=== PATIENT | male | born 1970 | race Caucasian/White ===

== ENCOUNTER 2016-07-29 23:36 | Emergency (ER) | payer BC ==
[2016-07-30] MEDS ORDERED: Aspirin Low Dose CHEW TAB* 81 MG PO ONE (01:30)
[2016-07-30 02:09] LABS: Hematocrit 45 % (42-52); Hemoglobin 15.3 g/dl (14.0-18.0); Mean Corpuscular HGB Conc 34 g/dl (31-36); Mean Corpuscular Hemoglobin 31 pg (27-31); Mean Corpuscular Volume 92 fL (80-94); Mean Platelet Volume 9 um3 (7.4-10.4); Red Blood Count 4.91 10^6/ul (4.0-5.4); Red Cell Distribution Width 13 % (10.5-15); White Blood Count 7.3 10^3/ul (3.5-10.8)
[2016-07-30 02:22] LABS: Albumin 4.2 g/dL (3.2-5.2); BUN/Creatinine Ratio 22.1 (8-20); Calcium 9.4 mg/dL (8.6-10.3); EGFR African American 161.5 (>60); EGFR Non-African American 125.5 (>60); Globulin 3.2 g/dL (2-4); Potassium 3.7 mmol/L (3.5-5.0); Total Bilirubin 0.6 mg/dL (0.2-1.0); Total Protein 7.4 g/dL (6.4-8.9)
--- NOTE | 2016-07-30 03:21 | ED ---
robert Iqbal Timothy, scribed for Patrick Nuno on 07/30/16 at 0132 . HPI Chest Pain - HPI Summary HPI Summary: Troy Mendoza is a 45 yo male presenting to [facility] with left upper CP with SOB and nausea since 2315 07/29/16, for about 20 minutes. Pt denies diaphoresis and pain at this time. His MHx includes SVT with ablation 2014, and DM Dx 2 days MORTAR MIXER , HTN, anxiety, and depression. - History of Current Complaint Chief Complaint: EDChestPainROMI Time Seen by Provider: 07/30/16 01:23 Hx Obtained From: Patient Onset/Duration: Started Hours Ago, Resolved Time of Onset: 23:45 Timing: Intermittent - 15 minutes Initial Severity: Moderate Current Severity: None Pain Intensity: 0 Pain Scale Used: 0-10 Numeric Chest Pain Location: Diffuse Alleviating Factor(s): Spontaneous Resolution Associated Signs and Symptoms: Positive: Shortness of Breath, Nausea - Allergy/Home Medications Allergies/Adverse Reactions: Allergies Allergy/AdvReac Type Severity Reaction Status Date / Time No Known Allergies Allergy Verified 04/15/12 15:49 PMH/Surg Hx/FS Hx/Imm Hx Endocrine/Hematology History: Denies: Hx Diabetes Cardiovascular History: Reports: Hx Angina, Hx Hypertension - medicated, Other Cardiovascular Problems/Disorders - Taccycardia episode 2008, ED visit, medicated to reduce Denies: Hx Coronary Artery Disease, Hx Hypercholesterolemia, Hx Myocardial Infarction, Hx Valvular Heart Disease Respiratory History: Reports: Hx Sleep Apnea - C PAP Denies: Hx Asthma, Hx Chronic Obstructive Pulmonary Disease (COPD) Sensory History: Denies: Hx Contacts or Glasses, Hx Hearing Aid Opthamlomology History: Denies: Hx Contacts or Glasses Neurological History: Reports: Hx Headaches - PAST Psychiatric History: Reports: Hx Anxiety - OK WITH DAILY MED - Surgical History Surgery Procedure, Year, and Place: 1970 R [facility]RING [place]. 1991 SEPTOPLASTY [facility]. 2011 DENTAL OFC I AND D INFECTED ROOT CANAL. 2008 VASECTOMY OFC Hx Anesthesia Reactions: No Infectious Disease History: Yes Infectious Disease History: Reports: Hx of Known/Suspected MRSA, Traveled Outside the [place] in Last 30 Days - [facility] - Social History Alcohol Use: Occasionally Substance Use Type: Reports: None Hx Tobacco Use: Yes - 5 years of use Smoking Status (MU): Former Smoker Type: Cigarettes Have You Smoked in the Last Year: No Review of Systems Constitutional: Negative Eyes: Negative ENT: Negative Positive: Chest Pain Positive: Shortness Of Breath Positive: Nausea Genitourinary: Negative Musculoskeletal: Negative Skin: Negative Neurological: Negative Psychological: Normal All Other Systems Reviewed And Are Negative: Yes Physical Exam Triage Information Reviewed: Yes Vital Signs On Initial Exam: Initial Vitals Temp Pulse Resp BP Pulse Ox 96.8 F 78 16 163/96 99 07/29/16 23:36 07/29/16 23:36 07/29/16 23:36 07/29/16 23:36 07/29/16 23:36 Vital Signs Reviewed: Yes Appearance: Positive: Well-Appearing, No Pain Distress Skin: Positive: Warm, Skin Color Reflects Adequate Perfusion, Dry Head/Face: Positive: Normal Head/Face Inspection Eyes: Positive: EOMI, MEGAN ENT: Positive: Normal ENT inspection, Hearing grossly normal. Negative: Muffled /hoarse voice Neck: Positive: Supple, Nontender Respiratory/Lung Sounds: Positive: Clear to Auscultation, Breath Sounds Present Cardiovascular: Positive: RRR, Pulses are Symmetrical in both Upper and Lower Extremities Abdomen Description: Positive: Nontender, Soft Bowel Sounds: Positive: Present Musculoskeletal: Positive: Normal, Strength/ROM Intact Neurological: Positive: Normal, Sensory/Motor Intact, Alert, Oriented to Person Place, Time Psychiatric: Positive: Normal Diagnostics - Vital Signs Vital Signs Temp Pulse Resp BP Pulse Ox 07/29/16 23:36 96.8 F 78 16 163/96 99 - Laboratory Result Diagrams: 07/30/16 02:00 07/30/16 02:00 Lab Statement: Any lab studies that have been ordered have been reviewed, and results considered in the medical decision making process. - Radiology CXR Xray Interpretation: No Acute Changes - no acute disease Radiology Interpretation Completed By: ED Physician - EKG 2337 Cardiac Rate: NL EKG Rhythm: Sinus Rhythm EKG Interpretation: NSR @ 77 BPM, no acute changes compared 09/21/14 EKG Comparison: No Significant Change - from 09/21/14 Re-Evaluation - Re-Evaluation First Eval Re-Evaluation Time: 02:54 Change: Unchanged Comment: Pt is requesting to leave AMA Chest Pain Course/Dx - Course Assessment/Plan: Troy Mendoza is a 45 yo male presenting to [facility] with CP, SOB, and nausea. He states his Sx have mostly resolved at this point. After recpommendation for admission for a stress test, Pt will leave AMA. - Diagnoses Provider Diagnoses: Chest pain Discharge - Discharge Plan Condition: Stable Disposition: AGAINST MEDICAL ADVICE Discharge Disposition Comment: Pt will seek a stress test at a later time Patient Education Materials: Chest Pain (ED) Referrals: Steve Ding MD [Primary Care Provider] - As Soon As Possible Additional Instructions: Please follow up with your primary care physician for a stress tests as soon as possible. Return to the emergency department with any new or recurring symptoms. The documentation as recorded by the robert yañez Timothy accurately reflects the service I personally performed and the decisions made by , Patrick Nuno.
[2016-07-30 03:29] VITALS: BP 119/95
--- NOTE | 2016-07-30 07:52 | RAD ---
INDICATION: Chest pain COMPARISON: Most recent comparison chest x-rays dated September 21, 2014 TECHNIQUE: Single AP portable view of the chest was obtained. FINDINGS: Image quality is compromised due to the relative inferiority of a portable chest x-ray. The heart and mediastinum exhibit normal size and contour. The lungs are grossly clear. There is no evidence of a large pleural effusion. Visualized bones are normal for the patient's age. IMPRESSION: No radiographic evidence for acute cardiopulmonary abnormality on this portable chest x-ray.
== END 2016-07-30 03:28 | disposition left against medical advice (07) ==
LOC: ED 23:36
DX: R07.9 Chest pain, unspecified (principal); R06.02 Shortness of breath; R11.0 Nausea
CPT/HCPCS: 36415; 71010; 80053; 83880; 84484; 85025; 86703; 93005; 99282; A9270-GY

== ENCOUNTER 2017-11-04 05:50 | Day surgery (SDC) | payer BC ==
--- NOTE | 2017-10-29 23:17 | HP ---
PREOPERATIVE HISTORY AND PHYSICAL: DATE OF SURGERY: 11/04/17 DATE OF OFFICE VISIT: 10/27/17 ATTENDING SURGEON: Dr. Kobi Stanley.* (DICTAED BY DIXON RECINOS0 PROCEDURE: Left knee arthroscopy, partial meniscectomy. CHIEF COMPLAINT: Left knee pain. HISTORY OF PRESENT ILLNESS: Troy is a 46-year-old male who presents to the clinic for left knee pain due to a medial meniscal tear. He failed conservative measures and therefore agreed to undergo a left knee arthroscopy, partial meniscectomy with Dr. Stanley on 11/04/17. PAST MEDICAL HISTORY: History of hypertension, history of atrial fibrillation, type 2 diabetes most recent A1c was 6.1, anxiety, alcohol abuse, recent diagnosis of Lyme, he just finished his treatment 1 week ago. PAST SURGICAL HISTORY: Heart ablation, hernia surgery. The patient denies prior complications of anesthesia. MEDICATIONS: 1. Amlodipine 10 mg 1 by mouth daily. 2. Metformin 500 mg 1 by mouth daily. 3. Vitamin D 1000 units 1 by mouth daily. 4. 5 mg 1 by mouth daily. 5. Doxycycline 100 mg twice a day. 6. Vitamin B12 one by mouth daily. ALLERGIES: No known drug allergies. FAMILY HISTORY: Positive for heart disease. SOCIAL HISTORY: He lives alone. He is a systems software specialist. He denies tobacco or alcohol use. He is right-hand dominant. REVIEW OF SYSTEMS: A 14-point review of systems was reviewed with the patient. Positive for current complaint, otherwise negative. Denies fever, chills, chest pain, shortness of breath, history of DVT or PE, history of bleeding disorder, history of MRSA. PHYSICAL EXAMINATION GENERAL: A 46-year-old well-developed, well-nourished male, in no acute distress. Alert and oriented x3. Appropriate mood and affect. Appropriate balance and coordination of the lower extremities. VITAL SIGNS: Height 72, weight 255, blood pressure 148/98, respiratory rate 18 , temperature 98.4, BMI 34.6. HEENT: Normocephalic, atraumatic. PERRLA. Throat clear. NECK: Supple. PULMONARY: Lungs clear to auscultation bilaterally. No wheezing, rhonchi or rales. CARDIO: Regular rate and rhythm. S1, S2. No murmurs, gallops or rubs. No edema. ABDOMEN: Positive bowel sounds, soft, nontender. NEURO: Alert and oriented x3. Cranial nerves grossly intact. Sensation is intact to light touch. MUSCULOSKELETAL: Left lower extremity skin is intact. No warmth or erythema. No effusion. Tenderness over the medial joint line. Range of motion 0 to 125. Stable to varus and valgus stress. 1A Shilo. Calf soft, nontender. +5/5 strength dorsiflexion and plantar flexion. Positive Pascual. +2 PT pulses. Sensation intact to light touch distally. STUDIES: MRI of the left knee revealed partial tear of the ACL with a medial meniscus tear. No evidence of fracture or dislocation. IMPRESSION: Left knee meniscus tear. PLAN: The patient is scheduled to undergo a left knee arthroscopy, partial meniscectomy with Dr. Stanley on 11/04/17. He will follow up in 10 to 14 days postop for followup and suture removal. Percocet will be used for postop pain management. DIXON RECINOS [id number]/[facility] #: [id number] MTDRonald
[~2017-11-04 05:50] MED LIST: Buffered Lidocaine 0.9% SYRIN* 5 ML/SYR SYRINGE INTRADERM ONE
[2017-11-04] MEDS ORDERED: Dexamethasone IV* 4 MG/ML 1 ML (4 MG) ONE (05:59)
[2017-11-04] MEDS ORDERED: ceFAZolin 2 GM PREMIX (*) 2 GM/50 ML BAG IVPB ONE (05:59)
[2017-11-04] MEDS ORDERED: Famotidine IV* 10 MG/ML 2 ML (20 mg) ONE (05:59)
[2017-11-04] MEDS ORDERED: Dexamethasone IV* 4 MG/ML 1 ML (4 MG) IV SLOW PU ONE (06:00)
[2017-11-04] MEDS ORDERED: Famotidine IV* 10 MG/ML 2 ML (20 mg) IV ONE (06:00)
[2017-11-04] MEDS ORDERED: Bupivacaine 0.5% SDV PF* 30ML VIAL ONE (07:06)
[2017-11-04] MEDS ORDERED: Lidocaine 1% MPF wEPI 200,000* 30 ML SDV ONE (07:06)
[2017-11-04] MEDS ORDERED: fentaNYL* 50 MCG/ML 2 ML VIAL (100 MCG VIAL) ONE ×2 (07:18→08:05)
[2017-11-04] MEDS ORDERED: Midazolam* 1 MG/ML 5 ML VIAL (5 MG) ONE (07:18)
[2017-11-04] MEDS ORDERED: Propofol* 10 MG/ML 20 ML BTL IV PUSH ONE (07:41)
[2017-11-04] MEDS ORDERED: Lidocaine 2% PF * 5 ML VIAL ONE (07:41)
[2017-11-04] MEDS ORDERED: Ketorolac INJ* 30 MG/ML 1 ML VIAL ONE (07:50)
[2017-11-04] MEDS ORDERED: DiMENhydriNATE IV* 50 MG/ML VIAL ONE (08:10)
[2017-11-04] MEDS ORDERED: PROCHLORPERAZINE INJ 5 MG/ML 2 ML VIAL IV PRN (08:16)
[2017-11-04] MEDS ORDERED: fentaNYL* 50 MCG/ML 2 ML VIAL (100 MCG VIAL) IV PRN (08:16)
[2017-11-04] MEDS ORDERED: HYDROcodone/ACETAMIN 5-325 MG* 1 TAB PO PRN (08:16)
[2017-11-04] MEDS ORDERED: Naloxone* 0.4 MG/ML 1 ML VIAL IV PRN (08:16)
[2017-11-04] MEDS ORDERED: oxyCODONE/Acetamin 5/325 MG* TAB PO PRN (08:16)
[2017-11-04] MEDS ORDERED: oxyCODONE/Acetamin 5/325 MG* TAB ONE (08:58)
[2017-11-04 09:26] VITALS: BP 133/75
--- NOTE | 2017-11-05 06:05 | OP ---
CC: PCP, Peter Castillo MD * DATE OF OPERATION: 11/04/17 - [facility] DATE OF : 68 SURGEON: Kobi Stanley MD ANESTHESIOLOGIST: Atif Rice MD PRE-OP DIAGNOSES: Left knee partial anterior cruciate ligament tear with medial meniscal root tear and mild osteoarthritis. POST-OP DIAGNOSES: Left knee medial meniscus root tear, arthritis of the patellofemoral joint, medial plica, and lateral meniscal fraying. OPERATIVE PROCEDURE: Left knee arthroscopy with partial medial and partial lateral meniscectomy, chondroplasty of the trochlea, medial plica excision. INDICATIONS: Troy Mendoza is a 46-year-old male, who sustained injury for his left knee in July. He has had catching and locking, medially based. He did have some instability but that resolved with time. He is complaining more of a medial- based catching, locking, and inability to get back to his activities. Risks and benefits of surgery were discussed at length and included , but not limited to, bleeding, infection, damage to nerves, vessels, surrounding structures, wound nonhealing, persistent pain, need for surgery, scarring, stiffness, incomplete relief of symptoms, risk of DVT, risk of anesthesia. He has elected to proceed. COMPLICATIONS: None. ESTIMATED BLOOD LOSS: Minimal. DESCRIPTION OF PROCEDURE: The patient was greeted in the preoperative area by the attending surgeon. Correct extremity was marked and consent was confirmed. The patient was brought back to the operating suite, where he was placed in the supine position on the operating table. He then underwent general anesthesia with LMA intubation, after which he was appropriately positioned in the bed. The lateral post was positioned. An unsterile tourniquet was placed high on the proximal thigh. The left leg was then prepped and draped in the usual sterile fashion beginning with chlorhexidine soap, scrub, and alcohol wipe , and a final prep with ChloraPrep. After appropriate surgical pause indicating site, side, procedure, and administration of antibiotics, the knee was intra-articularly injected with 1% lidocaine with epi. The anterolateral portal was made with 11 blade. Scope was introduced into the joint. Joint was examined. There were grade 3 and 4 changes of the trochlea, grade 2 changes of the patella. There was a large plica medially based. The medial and lateral gutters were intact without loose bodies. The ACL and PCL were intact, but ACL had some degeneration. There was a large amount of synovitis particularly anteromedially based. This was debrided back after the anteromedial portal was made using an 18-gauge needle for localization. Shaver was used to debride back as well as electrocautery to maintain hemostasis. Medial compartment was examined. The medial femoral condyle had grade 1 to 2 changes. The plateau had grade 2 changes with small area of unstable flaps in the medial meniscus, the body was intact, was unable to be displaced but the root had a small unstable flap that was determined after placing the camera in the [place] portal, and this was then debrided back using the stevo and biters until there were no further flaps. The lateral compartment was examined as well and the lateral plateau had grade 2 changes. Lateral femoral condyle had grade 1 changes. Lateral meniscus had some mild fraying, but was otherwise stable. This was debrided back using the shaver. At this point, the plica medially based was then removed using stevo and electrocautery device. The synovitis around it was also removed using the shaver and electrocautery device. Knee was then placed in extension. A chondroplasty of the trochlea was then done. At this point, final images were obtained. All fluid and debris were then carefully removed from the joint. Knee was thoroughly lavaged. The wounds were copiously irrigated with sterile saline. Portals were closed with 3-0 nylon in interrupted fashion. The knee was intra-articularly injected with 0.25% Marcaine plain. Sterile dressings were applied and Cryo/Cuff. He was awoken from anesthesia, transferred to the PACU in stable condition. POSTOPERATIVE PLAN: He will be weightbearing as tolerated. Crutches for the first 3 to 5 days. Discharge on pain medications. DVT prophylaxis was considered but deferred due to no previous personal or family history. I will see him back in approximately 10 to 14 days. [id number]/[facility] #: [id number] [facility] HOSPITALRonald
== END 2017-11-04 10:00 | disposition home or self-care (01) ==
LOC: OR 05:50
PROVIDERS: ATTEND Orthopaedic Surgery
DX: S83.242A Other tear of medial meniscus, current injury, left knee, initial encounter (principal); E11.9 Type 2 diabetes mellitus without complications; Z79.84 Long term (current) use of oral hypoglycemic drugs; I10 Essential (primary) hypertension; F41.9 Anxiety disorder, unspecified; G47.33 Obstructive sleep apnea (adult) (pediatric); I48.91 Unspecified atrial fibrillation; F10.11 Alcohol abuse, in remission; X58.XXXA Exposure to other specified factors, initial encounter; Y92.9 Unspecified place or not applicable
CPT/HCPCS: A9270-GY; J0690; J1100; J1240; J1885; J2001; J2250; J2704; J3010

== ENCOUNTER 2018-10-11 08:46 | Emergency (ER) | payer BC ==
[2018-10-11 08:55] VITALS: BP 192/109
--- NOTE | 2018-10-11 09:32 | UC ---
Cardiac HPI - HPI Summary HPI Summary: 47-year-old male comes in with chief complaint of chest pain and shortness of breath. Patient reports started about a month ago. When he wakes up in the morning he feel short of breath and his chest feels tight. He has been exercising which makes the shortness of breath worse. He does have problems with his knees and so he's been having lower leg pain. No wheezing no sputum production. The chest tightness is circumferential. When he is exercising shortness breath gets worse and rest helps with the shortness of breath. - History of Current Complaint Chief Complaint: UCGeneralIllness Stated Complaint: CHEST COMPLAINT Time Seen by Provider: 10/11/18 08:59 Pain Intensity: 1 - Allergy/Home Medications Allergies/Adverse Reactions: Allergies Allergy/AdvReac Type Severity Reaction Status Date / Time No Known Allergies Allergy Verified 10/11/18 08:56 Home Medications: Home Medications Meloxicam 1 tab PO DAILY 10/11/18 [History Confirmed 10/11/18] PMH/Surg Hx/FS Hx/Imm Hx Previously Healthy: Yes Endocrine History: Diabetes Cardiovascular History: Hypertension Respiratory History: Other - Surgical History Surgical History: Yes Surgery Procedure, Year, and Place: 1970 R MYRING - DRNG TO EAR- [facility]. 1991 SEPTOPLASTY [facility]. 2011 DENTAL OFC I AND D INFECTED ROOT CANAL. 2008 VASECTOMY OFC. CARDIAC ABLATION. HERNIA - Family History Known Family History: Positive: Non-Contributory - Social History Alcohol Use: Occasionally Substance Use Type: None Substance Use Comment - Amount & Last Used: DRINKS 8-10 CUPS COFFEE/DAY Smoking Status (MU): Former Smoker Type: Cigarettes Amount Used/How Often: 1 PPD FOR 5 YRS Length of Time of Smoking/Using Tobacco: 5 YRS Have You Smoked in the Last Year: No When Did the Patient Quit Smoking/Using Tobacco: 20+ YRS AGO - Immunization History Most Recent Influenza Vaccination: 2013 Most Recent Tetanus Shot: has had Most Recent Pneumonia Vaccination: never Review of Systems All Other Systems Reviewed And Are Negative: Yes Constitutional: Positive: Negative Skin: Positive: Negative Eyes: Positive: Negative ENT: Positive: Negative Respiratory: Positive: Shortness Of Breath, Other - see hpi Cardiovascular: Positive: Chest Pain, Other - see hpi Gastrointestinal: Positive: Diarrhea - yesterday Motor: Positive: Negative Neurovascular: Positive: Negative Musculoskeletal: Positive: Other: - see hpi Neurological: Positive: Negative Psychological: Positive: Negative Is Patient Immunocompromised?: No Physical Exam Triage Information Reviewed: Yes Appearance: Well-Appearing, No Pain Distress, Well-Nourished Vital Signs: Initial Vital Signs Temp 98 F 10/11/18 08:51 Pulse 83 10/11/18 08:51 Resp 16 10/11/18 08:51 BP 192/109 10/11/18 08:51 Pulse Ox 99 10/11/18 08:51 Vital Signs Reviewed: Yes Eye Exam: Normal Eyes: Positive: Conjunctiva Clear ENT: Positive: Pharynx normal Neck: Positive: Supple Respiratory: Positive: Lungs clear, Normal breath sounds, No respiratory distress Musculoskeletal: Positive: No Edema, Other: - No calf tenderness Neurological Exam: Normal Neurological: Positive: Alert, Muscle Tone Normal Psychological Exam: Normal Psychological: Positive: Age Appropriate Behavior Skin Exam: Normal Diagnostics - EKG Cardiac Rate: NL - at 0904 Cardiac Rhythm: Sinus: Normal - 82bpm Ectopy: None Summary of EKG Findings: Flipped T in III, No ST elevation - Assessment/Plan Course Of Treatment: I discussed the EKG I discussed the EKG with the patient. I do not see any acute ischemic changes. There is no ectopy. I recommended further evaluation in the emergency department. Patient prefers to go by POV. - Clinical Impression Provider Diagnosis: Chest pain, Shortness of breath Discharge - Sign-Out/Discharge Documenting (check all that apply): Patient Departure All imaging exams completed and their final reports reviewed: No Studies - Discharge Plan Condition: Stable Disposition: HOME-RECOMMEND TO ED Patient Education Materials: Chest Pain (ED), Shortness of Breath (ED) Referrals: Peter Castillo MD [Primary Care Provider] - Additional Instructions: GO DIRECTLY TO THE EMERGENCY DEPARTMENT FOR FURTHER EVALUATION. - Billing Disposition and Condition Condition: STABLE Disposition: Home-Recommend to ED
== END 2018-10-11 09:42 | disposition home health service (06) ==
LOC: UCEAST 08:46
DX: R07.89 Other chest pain (principal); R06.02 Shortness of breath; I51.7 Cardiomegaly; E11.9 Type 2 diabetes mellitus without complications; I10 Essential (primary) hypertension; Z87.891 Personal history of nicotine dependence
CPT/HCPCS: 93005; 99212; G0463

== ENCOUNTER 2018-10-11 09:54 | Emergency (ER) | payer BC ==
[2018-10-11] MEDS ORDERED: Labetalol IV* 5 MG/ML 20 ML VIAL IV PUSH ONE (10:38)
[2018-10-11] MEDS ORDERED: Aspirin 81 mg CHEW TAB* 81 MG TAB.CHEW PO ONE (10:38)
--- NOTE | 2018-10-11 10:40 | ED ---
HPI Cardiac - HPI Summary HPI Summary: Patient is a 47 y/o M presenting to ED with complaints constant episodes of chest pain characterized as a pressure for the past month. Patient states that he typically gets his episodes of chest pain with exertion. He notes that he hikes frequently but has been feeling increasingly tired/SOB during his regular , normal hikes. He also states that lying on his left side is more uncomfortable. Today, worse chest pressure and SOB onset after 0430 when he went out to take his dog for a walk. He called his doctor, [facility] and was advised to come to ED. PMHx of HTN, he states his BP is higher than normal today, PMHx of diabetes is endorsed, he denies PMHx of CA and HLD. PSHx of ablation for afib (however, he notes that he is unsure of reason for ablation). He denies being on blood thinners. He states that his chest feels "tight" at present. Diaphoresis is denied. He notes that he has been experiencing some pain at the back of his left calf. PSHx of left knee surgery. He denies having received ASA at [facility]. On triage, pain is rated 3/ 10. Home medications and allergies are reviewed. - History of Current Complaint Chief Complaint: EDChestPainROMI Stated Complaint: HEART ATTACK SCARE PER PT Time Seen by Provider: 10/11/18 10:22 Hx Obtained From: Patient Onset/Duration: Started Hours Ago - current episode of chest pain, Started Weeks Ago - chest pain first onset a month ago, Still Present, Worse Since - today Timing: Lasting Weeks - chest pain first onset a month ago Current Severity: Mild - 3/10 Pain Intensity: 3 Pain Scale Used: 0-10 Numeric - 3/10 Character: Pressure/Squeezing, Tightness Aggravating Factor(s): Exertion - aggravates SOB/tiredness, Position - lying on left side Alleviating Factor(s): Nothing Associated Signs and Symptoms: Positive: Chest Pain, Shortness of Breath, Calf Pain/Swelling - LEFT CALF PAIN, Other: - POSITIVE - INCREASED FATIGUE. Negative : Diaphoresis - Allergy/Home Medications Allergies/Adverse Reactions: Allergies Allergy/AdvReac Type Severity Reaction Status Date / Time No Known Allergies Allergy Verified 10/11/18 08:56 PMH/Surg Hx/FS Hx/Imm Hx Endocrine/Hematology History: Denies: Hx Bone Marrow Disease, Hx Diabetes, Hx Sickle Cell Disease, Hx Anemia Cardiovascular History: Reports: Hx Angina, Hx Hypertension - medicated, Other Cardiovascular Problems/Disorders - Taccycardia episode 2009, ED visit, medicated to reduce Denies: Hx Coronary Artery Disease, Hx Hypercholesterolemia, Hx Myocardial Infarction, Hx Pacemaker/ICD, Hx Valvular Heart Disease Respiratory History: Reports: Hx Sleep Apnea - C PAP Denies: Hx Asthma, Hx Chronic Obstructive Pulmonary Disease (COPD) GI History: Reports: Other GI Disorders - 04/19 VENTRAL HERNIA History: Denies: Hx Renal Disease Musculoskeletal History: Reports: Hx Arthritis - KNEES, Other Musculoskeletal History - 07/26 INJURY TO LEFT KNEE Sensory History: Denies: Hx Cataracts, Hx Contacts or Glasses, Hx Glaucoma, Hx Hearing Aid Opthamlomology History: Denies: Hx Cataracts, Hx Contacts or Glasses, Hx Glaucoma Neurological History: Reports: Hx Headaches - PAST Psychiatric History: Reports: Hx Anxiety - OK WITH DAILY MED Denies: Hx Panic Disorder - Surgical History Surgery Procedure, Year, and Place: 1970 R MYRING - DRNG TO EAR- [facility]. 1991 SEPTOPLASTY [facility]. 2011 DENTAL OFC I AND D INFECTED ROOT CANAL. 2008 VASECTOMY OFC. CARDIAC ABLATION. HERNIA Hx Anesthesia Reactions: No Infectious Disease History: No Infectious Disease History: Reports: Hx of Known/Suspected MRSA Denies: Traveled Outside the [place] in Last 30 Days - Family History Known Family History: Positive: Cardiac Disease - Social History Alcohol Use: Occasionally Substance Use Type: Reports: None Substance Use Comment - Amount & Last Used: DRINKS 8-10 CUPS COFFEE/DAY Hx Tobacco Use: Yes - 5 years of use Smoking Status (MU): Former Smoker Type: Cigarettes Amount Used/How Often: 1 PPD FOR 5 YRS Length of Time of Smoking/Using Tobacco: 5 YRS Have You Smoked in the Last Year: No Review of Systems Positive: Fatigue. Negative: Skin Diaphoresis Positive: Chest Pain Positive: Shortness Of Breath Musculoskeletal: Other - POSITIVE - LEFT CALF PAIN All Other Systems Reviewed And Are Negative: Yes Physical Exam - Summary Physical Exam Summary: VITAL SIGNS: Reviewed. GENERAL: Patient is a well-developed and nourished male who is lying comfortable in the stretcher. Patient is not in any acute respiratory distress. HEAD AND FACE: No signs of trauma. No ecchymosis, hematomas or skull depressions. No sinus tenderness. EYES: PERRLA, EOMI x 2, No injected conjunctiva, no nystagmus. EARS: Hearing grossly intact. Ear canals and tympanic membranes are within normal limits. MOUTH: Oropharynx within normal limits. NECK: Supple, trachea is midline, no adenopathy, no JVD, no carotid bruit, no c- spine tenderness, neck with full ROM. CHEST: Symmetric, no tenderness at palpation LUNGS: Clear to auscultation bilaterally. No wheezing or crackles. CVS: Regular rate and rhythm, S1 and S2 present, no murmurs or gallops appreciated. ABDOMEN: Soft, non-tender. No signs of distention. No rebound no guarding, and no masses palpated. Bowel sounds are normal. EXTREMITIES: FROM in all major joints, no edema, no cyanosis or clubbing. NEURO: Alert and oriented x 3. No acute neurological deficits. Speech is normal and follows commands. SKIN: Dry and warm Triage Information Reviewed: Yes Vital Signs On Initial Exam: Initial Vitals Temp Pulse Resp BP Pulse Ox 98.6 F 88 18 221/105 99 10/11/18 09:57 10/11/18 09:57 10/11/18 09:57 10/11/18 09:57 10/11/18 09:57 Vital Signs Reviewed: Yes Diagnostics - Vital Signs Vital Signs Temp Pulse Resp BP Pulse Ox 10/11/18 10:33 94 10/11/18 09:57 98.6 F 88 18 221/105 99 - Laboratory Result Diagrams: 10/11/18 10:47 10/11/18 10:47 Lab Statement: Any lab studies that have been ordered have been reviewed, and results considered in the medical decision making process. - Radiology CHEST X-RAY Radiology Interpretation Completed By: Radiologist Summary of Radiographic Findings: IMPRESSION: NO ACTIVE CARDIOPULMONARY DISEASE IS NOTED. THIS REPORT WAS REVIEWED BY DR. RICHMOND. - Ultrasound No standard instances Ultrasound Interpretation Completed By: Radiologist Summary of Ultrasound Findings: LLE US IMPRESSION: NO LEFT LOWER EXTREMITY DEEP VEIN THROMBOSIS. THIS REPORT WAS REVIEWED BY DR. RICHMOND - EKG 1004 Cardiac Rate: NL - RATE OF 82 BPM EKG Rhythm: Sinus Rhythm Summary of EKG Findings: EKG showed sinus rhythm with rate of 82 BPM, no ST elevation. Re-Evaluation - Re-Evaluation First Eval Re-Evaluation Time: 12:40 Comment: Admission was discussed with the patient, he is agreeable. Second Eval Re-Evaluation Time: 13:39 Comment: Dr. Ku did a consult with the patient. At this time, the patient declines admission. Dr. Ku recommends that the patient be discharged to home with prescription for ASA, as well as oracle fusion consultant follow up and stress test, which will be done. Disposition - Course Assessment/Plan: This patient is a 47-year-old male who presents to the emergency department after he was transferred to the urgent care with chief complaint of having chest pain and shortness of breath. He reports that the chest pain and shortness of breath only on exertion. He has been having the symptoms for at least 1 month. He reports that today the symptoms have worsened. Also he reports that he has a left calf pain. Initially the patient was placed in a distribution lineman, IV access was obtained, and we noticed that the patient is very hypertensive. I did order for this patient aspirin and labetalol. EKG shows a normal sinus rhythm at [address] elevations. Blood work without any significant abnormality except for glucose 132, magnesium 1.6 for which the patient was given magnesium IV. AST is 53. Troponin is 0.00. The left lower extremity ultrasound impression: No left lower extremity DVT. Since the patient reports that the patients chest pressure and shortness of breath is only on exertion I believe that the patient is dealing with any stable angina. Therefore believe that the patient would benefit from a stress test as an inpatient. I discuss my physical exam, findings and test results with Dr. Ku from the hospitalist services and he agrees to admit patient to his services. Patient is hemodynamically stable alert and oriented x 3. Before the patient was admitted, Dr. Pickering saw and examined the patient and she is comfortable discharging the patient home with a prescription for aspirin. She will ordered the stress test as an outpatient. The patient will be discharged home by Dr. Pickering - Diagnoses Provider Diagnoses: Stable angina pectoris - Physician Notifications Discussed Care Of Patient With: Viktoria Ku Time Discussed With Above Provider: 12:33 Instructed by Provider To: Other - Patient's case was discussed with Dr. Ku , Dr. Ku accepts for admission. Discharge - Sign-Out/Discharge Documenting (check all that apply): Patient Departure - discharge Patient Received Moderate/Deep Sedation with Procedure: No - Discharge Plan Condition: Stable Disposition: HOME Prescriptions: Aspirin 81 mg CHEW TAB* 81 mg PO BEDTIME #1 bottle Rosuvastatin Calcium 10 mg PO BEDTIME #30 tablet Patient Education Materials: Angina (ED) Referrals: Peter Castillo MD [Primary Care Provider] - 3 Days Dwight Munguia MD [Medical Doctor] - 3 Days Additional Instructions: RETURN TO ED FOR ANY NEW OR WORSENING SYMPTOMS. FOLLOW UP WITH YOUR PRIMARY CARE PHYSICIAN AND ADOBE ARCHITECT FOR STRESS TEST. - Billing Disposition and Condition Condition: STABLE Disposition: Home - Attestation Statements Document Initiated by Scribe: Yes Documenting Scribe: THOMAS BEARD Provider For Whom Somibashlie is Documenting (Include Credential): ALEISHA RICHMOND MD Scribe Attestation: THOMAS Iqbal, scribed for ALEISHA RICHMOND MD on 10/12/18 at 1048. Scribe Documentation Reviewed: Yes Provider Attestation: The documentation as recorded by the THOMAS yañez accurately reflects the service I personally performed and the decisions made by ALEISHA burgos MD Status of Scribe Document: Viewed
[2018-10-11 10:59] LABS: ABS Basophils 0.1 10^3/ul (0-0.2); ABS Eosinophils 0.1 10^3/ul (0-0.6); ABS Neutrophils 3.1 10^3/ul (1.5-7.7); Eosinophil % 1.7 %; Lymphocyte % 31.6 %; Nucleated Red Blood Cells % 0.1
[2018-10-11 11:22] LABS: Albumin 4.8 g/dL (3.2-5.2); Albumin/Globulin Ratio 1.5 (1-3); BUN/Creatinine Ratio 16.2 (8-20); Calcium 10.1 mg/dL (8.6-10.3); EGFR African American 136.6 (>60); EGFR Non-African American 112.9 (>60); Globulin 3.1 g/dL (2-4); Magnesium 1.6 mg/dL (1.9-2.7); Potassium 3.7 mmol/L (3.5-5.0); Total Bilirubin 0.4 mg/dL (0.2-1.0); Total Protein 7.9 g/dL (6.4-8.9)
[2018-10-11 11:24] LABS: Hematocrit 44 % (42-52); Hemoglobin 15.2 g/dL (14.0-18.0); Mean Corpuscular HGB Conc 35 g/dL (31-36); Mean Corpuscular Hemoglobin 31 pg (27-31); Mean Corpuscular Volume 90 fL (80-94); Mean Platelet Volume 8.9 fL (7.4-10.4); Platelet Count 256 10^3/uL (150-450); Red Cell Distribution Width 13 % (10.5-15); White Blood Count 6.3 10^3/uL (3.5-10.8)
[2018-10-11 11:26] LABS: CKMB ng/mL 2.5 ng/mL (0.6-6.3)
[2018-10-11 11:43] LABS: TSH (Thyroid Stimulating Horm) 1.36 mcIU/mL (0.34-5.60)
[2018-10-11] MEDS ORDERED: Magnesium Sulfate 1 GM IV* 1 GM/100 ML BAG IV ONE (11:59)
[2018-10-11 14:11] VITALS: BP 152/107
--- NOTE | 2018-10-11 20:32 | CONS ---
CC: Dr. Peter Castillo; Dr. Kobi Stanley * CONSULTATION REPORT: DATE OF CONSULT: 10/11/18 - EMERGENCY DEPT PRIMARY CARE PROVIDER: Dr. Peter Castillo. ORTHOPEDIC SURGEON: Dr. Kobi Stanley. REASON FOR CONSULT: Cardiac workup. HISTORY OF PRESENT ILLNESS AND CHIEF COMPLAINT: Mr. Mendoza is a 47-year-old man with a history of obesity; diabetes; hypertension; ANNEI, on CPAP; SVT, status post ablation, without recurrence, who is presenting with the advice of his clinic office for several weeks of chest pressure. Mr. Mendoza reports that he has started experiencing chest pressure on the lateral left chest associated with shortness of breath for the past several weeks. He states that he thinks it is from anxiety as the symptoms started as his anxiety got worse in the context of several significant family events such as going through divorce and a child of his having a suicide attempt. He states that he wakes up in the morning and the pressure and shortness of breath are there when he is walking his dogs; however, he states that with continued exercise the symptoms get better. Of note, he also is an avid hiker and generally tends to find the steepest hills in the area to climb, most recently was 3 days ago and he states that strenuous hikes do not bring on these symptoms, they actually improve his symptoms, he thinks because hiking takes his mind off of his personal issues. He denies an association of this pain with diaphoresis. It is not radiating. He does not experience recurrence of his SVT symptoms such as palpitations or lightheadedness. He reports brief GI illness earlier this week, which his daughter had as well, but that has since resolved. He states that he has been taking all of his home medications as prescribed without missed doses and he thinks his most recent A1c was 6.7 and he states that his blood pressure is usually less than 140. When he sees that here in the hospital, his recordings have been up into the 170s. Of note, the patient does take an ROSALINA inhibitor and metformin; however, he is not on a statin or an aspirin. 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 He is adamant about having close followup if we were to order an outpatient stress test for him. PAST MEDICAL HISTORY: 1. Obesity with recent significant weight loss. 2. ANNIE, on CPAP. 3. Hypertension. 4. Diabetes. 5. SVT, status post ablation. 6. Left knee meniscal tear. HOME MEDICATIONS: 1. Ramipril 5 mg daily. 2. Amlodipine 10 mg daily. 3. Metformin 1500 mg daily. 4. Meloxicam 15 mg twice a day as needed for pain. 5. Multivitamin daily. 6. Glucosamine/chondroitin 1 capsule daily. 7. Vitamin B12 500 mcg daily. 8. Vitamin D3 2000 units daily. ALLERGIES: No known drug allergies. FAMILY HISTORY: His father had 12 heart attacks. He does not know anything else about his father's health. Mother with history of CVA. SOCIAL HISTORY: The patient lives with his 2 children. He works as a qa software tester. He is originally from [place] [facility]. He quit smoking at the age of 20. He previously overused alcohol, but now very rarely has an alcoholic beverage. He denies any other drugs. PHYSICAL EXAM: The patient is afebrile, heart rate 70, blood pressure 147/89, respiratory rate 12, oxygen saturation 98% on room air. In general, very tearful on exam and anxious-appearing when discussing his personal life, otherwise in no acute distress, appears older than stated age. HEENT: Moist mucous membranes. Neck: No JVD. Lungs: Clear to auscultation bilaterally. Heart: Regular rate and rhythm. No murmurs, gallops, or rubs. Abdomen: Soft , nontender, nondistended. Extremities: Warm and well perfused without evidence of edema. DIAGNOSTIC STUDIES/LAB DATA: Labs reviewed and significant for negative D-dimer , hemoglobin A1c 7.4%, magnesium 1.6%, ALT mildly elevated to 53, AST normal, troponin normal, TSH 1.36. EKG with normal sinus rhythm at 82, evidence of LVH, largely unchanged from prior EKG in 2017. Chest x-ray without active cardiopulmonary disease. ASSESSMENT AND PLAN: This is a 47-year-old man with a history of supraventricular tachycardia, status post ablation; hypertension; diabetes; obstructive sleep apnea, on CPAP, who is presenting with an atypical left-sided chest pressure associated with shortness of breath in the context of anxiety, which improves with exercise. Given no evidence for acute coronary syndrome at this time and likelihood that the patient's presenting symptoms are related to his significant social stressors, I think a stress test would be most appropriate for him at this time. He does have cardiac risk factors such as a family history, obesity, diabetes, and hypertension. The patient is aware of our cardiac disease concerns and adamant that he will follow up closely with his stress test and he states he also has an appointment with his primary care physician coming up in the next couple weeks. The patient was advised to take a cholesterol-lowering medication as well as aspirin given his history of diabetes. We can prescribe for him rosuvastatin 10 mg to take at night and this can be titrated up as tolerated based off of his ASCVD risk score to be calculated with his primary care physician. He is to continue his other medications as prescribed. We are deferring to PCP to continue measuring blood pressure for blood pressure medication adjustments. His A1c is currently at goal. I do not think he is currently exhibiting symptoms of stable angina, but if the nature of his symptoms change, beta-shun or calcium channel shun would be appropriate at that time. Extensive conversation was had with the patient about diet and lifestyle interventions to lose weight, bring down blood pressure, blood sugar and reduce cardiac disease risk. The patient was amenable to this plan, was able to teach back, and an outpatient stress test was ordered for him with the addition of statin and aspirin. Thank you for this interesting consult. TIME SPENT: Approximately 1 hour was spent in consultation with this patient, more than half which was at bedside for interview, physical exam, and education. [id number]/[facility] #: [id number] [facility]SC[facility]
== END 2018-10-11 14:10 | disposition home or self-care (01) ==
LOC: ED 09:54
DX: I20.8 Other forms of angina pectoris (principal); I10 Essential (primary) hypertension; R94.31 Abnormal electrocardiogram [ECG] [EKG]; R06.02 Shortness of breath; G47.33 Obstructive sleep apnea (adult) (pediatric); F41.9 Anxiety disorder, unspecified; Z79.899 Other long term (current) drug therapy; Z87.891 Personal history of nicotine dependence
CPT/HCPCS: 36415; 71045; 80053; 82550; 82553; 83036; 83605; 83735; 83880; 84443; 84484; 85025; 85379; 93005; 96374; 96375; 99284; A9270-GY; J3475

== ENCOUNTER 2018-10-13 07:55 | Emergency (ER) | payer BC ==
--- NOTE | 2018-10-13 08:09 | ED ---
Hypertension - HPI Summary HPI Summary: A 47 y/o M presents to ED c/o hypertensive episodes beginning at 0600 upon waking. Pt was seen at [facility] and sent to [facility] two day ago for CP and HTN. This AM , his BP was 180/100. Associated sx: CP (rated as 2/3 out of 10 and described as "constricted"), migraine (pain rated as 4/5 out of 10), diarrhea, vision changes, diaphoresis, hot and cold flashes, dyspnea with deep breaths. Denies cough, sore throat, abd pain, urinary changes, pedal edema. Alleviating factors : exercise. Aggravating factors: anxiety. He felt at baseline yesterday, went hiking. He does not see a tight rope walker, but is scheduled for a stress test today at noon. - History of Current Complaint Chief Complaint: EDHypertension Stated Complaint: HEADACHE PER PT Time Seen by Provider: 10/13/18 08:06 Hx Obtained From: Patient Onset/Duration: Started Hours Ago, Atraumatic, Still Present Timing: Constant Aggravating Factor(s): Other: - anxiety Alleviating Factor(s): Other - exercise Associated Signs & Symptoms: Chest Pain, Vision Changes, Headaches, SOB - with deep breaths, Other: - pos: diarrhea, diaphoresis, hot/cold flashes. neg: cough , sore throat, abd pain, urinary sx, pedal edema. - Allergies/Home Medications Allergies/Adverse Reactions: Allergies Allergy/AdvReac Type Severity Reaction Status Date / Time No Known Allergies Allergy Verified 10/13/18 08:00 Home Medications: Home Medications Metformin HCl [Metformin HCl ER] 2,000 mg PO QAM 10/13/18 [History Confirmed 01/24] PMH/Surg Hx/FS Hx/Imm Hx Previously Healthy: No Endocrine/Hematology History: Denies: Hx Bone Marrow Disease, Hx Diabetes, Hx Sickle Cell Disease, Hx Anemia Cardiovascular History: Reports: Hx Angina, Hx Hypertension - medicated, Other Cardiovascular Problems/Disorders - Taccycardia episode 2008, ED visit, medicated to reduce Denies: Hx Coronary Artery Disease, Hx Hypercholesterolemia, Hx Myocardial Infarction, Hx Pacemaker/ICD, Hx Valvular Heart Disease Respiratory History: Reports: Hx Sleep Apnea - C PAP Denies: Hx Asthma, Hx Chronic Obstructive Pulmonary Disease (COPD) GI History: Reports: Other GI Disorders - 04/19 VENTRAL HERNIA History: Denies: Hx Renal Disease Musculoskeletal History: Reports: Hx Arthritis - KNEES, Other Musculoskeletal History - 07/26 INJURY TO LEFT KNEE Sensory History: Denies: Hx Cataracts, Hx Contacts or Glasses, Hx Glaucoma, Hx Hearing Aid Opthamlomology History: Denies: Hx Cataracts, Hx Contacts or Glasses, Hx Glaucoma Neurological History: Reports: Hx Headaches - PAST Psychiatric History: Reports: Hx Anxiety - OK WITH DAILY MED Denies: Hx Panic Disorder - Surgical History Surgery Procedure, Year, and Place: 1970 R MYRING - DRNG TO EAR- [facility]. 1991 SEPTOPLASTY [facility]. 2011 DENTAL OFC I AND D INFECTED ROOT CANAL. 2008 VASECTOMY OFC. CARDIAC ABLATION. HERNIA Hx Anesthesia Reactions: No Infectious Disease History: No Infectious Disease History: Reports: Hx of Known/Suspected MRSA Denies: Traveled Outside the in Last 30 Days - Family History Known Family History: Positive: Cardiac Disease - Social History Occupation: Works From/At Home - SELF Lives: With Family Alcohol Use: Occasionally Hx Substance Use: No Substance Use Type: Reports: None Substance Use Comment - Amount & Last Used: DRINKS 8-10 CUPS COFFEE/DAY Hx Tobacco Use: Yes - 5 years of use Smoking Status (MU): Former Smoker Type: Cigarettes Amount Used/How Often: 1 PPD FOR 5 YRS Length of Time of Smoking/Using Tobacco: 5 YRS Have You Smoked in the Last Year: No Review of Systems Positive: Skin Diaphoresis, Other - pos: hot/cold flashes Eyes: Other - vision changes Negative: Sore Throat Positive: Chest Pain, Other - pos: hypertensive episodes Positive: Other - pos: dyspnea with deep breaths. Negative: Cough Positive: Diarrhea. Negative: Abdominal Pain Genitourinary: Other - neg: urinary sx Negative: Edema Positive: Headache All Other Systems Reviewed And Are Negative: Yes Physical Exam - Summary Physical Exam Summary: Constitutional: Well-developed, Well-nourished, Alert. (-) Distressed Skin: Warm, Dry HENT: Normocephalic; Atraumatic Eyes: Conjunctiva normal Neck: Musculoskeletal ROM normal neck. (-) JVD, (-) Stridor, (-) Tracheal deviation Cardio: Rhythm regular, rate normal, Heart sounds normal; Intact distal pulses; The pedal pulses are 2+ and symmetric. Radial pulses are 2+ and symmetric. (-) Murmur Pulmonary/Chest wall: Effort normal. (-) Respiratory distress, (-) Wheezes, (-) Rales Abd: Soft, (-) tenderness, (-) Distension, (-) Guarding, (-) Rebound Musculoskeletal: (-) Edema Lymph: (-) Cervical adenopathy Neuro: Alert, Oriented x3 Psych: Mildly anxious Triage Information Reviewed: Yes Vital Signs On Initial Exam: Initial Vitals Temp Pulse Resp BP Pulse Ox 97.7 F 77 16 187/120 97 10/13/18 07:56 10/13/18 07:56 10/13/18 07:56 10/13/18 07:56 10/13/18 07:56 Vital Signs Reviewed: Yes Diagnostics - Vital Signs Vital Signs Temp Pulse Resp BP Pulse Ox 10/13/18 07:56 97.7 F 77 16 187/120 97 - Laboratory Result Diagrams: 10/13/18 08:37 10/13/18 08:37 Lab Statement: Any lab studies that have been ordered have been reviewed, and results considered in the medical decision making process. - EKG 0829 Cardiac Rate: NL - 73 bpm EKG Rhythm: Sinus Rhythm ST Segment: Non-Specific EKG Comparison: No Significant Change - from EKG on 10/11/18. Summary of EKG Findings: Prolonged MA, nml QRS, nml QTC. ST elevated in V2, V3. Q-waves are inverted in aVF. Re-Evaluation - Re-Evaluation 1 Re-Evaluation Time: 10:03 Change: Improved Comment: Discussing results thus far, and Dr. Reddy's, cardio, recommendation for trop at 1030 and stress test as scheduled. Hypertension Course/Dx - Course Course Of Treatment: Pt is a 47 y/o M presenting with hypertensive episodes (180 /100) beginning at 0600 upon waking. He was evaluated two days ago at [facility] for similar sx. Associated sx: CP, migraine, diarrhea, vision changes, diaphoresis, hot and cold flashes, dyspnea with deep breaths. He is scheduled for a stress test today at noon. PE was unremarkable except patient appears mildly anxious. Labs are unremarkable except glucose: 153. Repeat troponin remained at 0.00. EKG is NSR with non-specific ST waves and unchanged from prior EKG on 10/11/18. Pt given Mg Sulfate in ED. Consulted with Dr. Reddy, cardio, who recommends repeat troponin at 1030, to allow patient time to get to stress test as scheduled today. Pt will be discharged home, and directed to go to stress test as scheduled today. - Diagnoses Provider Diagnoses: Chest pain - Physician Notifications Discussed Care Of Patient With: Jonathan Reddy - cardio Time Discussed With Above Provider: 09:57 Instructed by Provider To: Other - Recommends repeat troponin at 1030, to allow patient time to get to stress test at noon. Discharge - Sign-Out/Discharge Documenting (check all that apply): Patient Departure - D/C Patient Received Moderate/Deep Sedation with Procedure: No - Discharge Plan Condition: Stable Disposition: HOME Patient Education Materials: Chest Pain (ED) Print Language: QATARI Referrals: Peter Castillo MD [Primary Care Provider] - Additional Instructions: If stress test is negative, consider taking Pepcid daily with Maalox as needed for chest discomfort. Follow-up with your primary care doctor. Go directly to your stress test now. - Billing Disposition and Condition Condition: STABLE Disposition: Home - Attestation Statements Document Initiated by Scribe: Yes Documenting Scribe: Asher Hernandez Provider For Whom Scribe is Documenting (Include Credential): Dr. Leeanna Cheng MD Scribe Attestation: I, Asher Hernandez, johned for Dr. Leeanna Cheng MD on at 1557. Scribe Documentation Reviewed: Yes Provider Attestation: The documentation as recorded by the Asher yañez accurately reflects the service I personally performed and the decisions made by me, Dr. Leeanna Cheng MD Status of Scribe Document: Viewed Consult Consult: 1009: Spoke with Nuclear Medicine If patient arrives by noon, will be OK.
[2018-10-13 09:00] LABS: ABS Basophils 0.1 10^3/ul (0-0.2); ABS Eosinophils 0.1 10^3/ul (0-0.6); ABS Lymphocytes 1.5 10^3/ul (1.0-4.8); ABS Monocytes 0.7 10^3/ul (0-0.8); ABS Neutrophils 2.9 10^3/ul (1.5-7.7); Eosinophil % 2.7 %; Hematocrit 42 % (42-52); Hemoglobin 14.1 g/dL (14.0-18.0); Lymphocyte % 27.9 %; Mean Corpuscular HGB Conc 34 g/dL (31-36); Mean Corpuscular Hemoglobin 30 pg (27-31); Mean Corpuscular Volume 90 fL (80-94); Mean Platelet Volume 8.5 fL (7.4-10.4); Nucleated Red Blood Cells % 0.1; Platelet Count 273 10^3/uL (150-450); Red Blood Count 4.66 10^6 /uL (4.18-5.48); Red Cell Distribution Width 13 % (10.5-15); White Blood Count 5.3 10^3/uL (3.5-10.8)
[2018-10-13 09:24] LABS: Albumin 4.5 g/dL (3.2-5.2); Albumin/Globulin Ratio 1.6 (1-3); BUN/Creatinine Ratio 14.7 (8-20); Calcium 9.3 mg/dL (8.6-10.3); EGFR African American 150.6 (>60); EGFR Non-African American 124.5 (>60); Globulin 2.9 g/dL (2-4); Magnesium 1.7 mg/dL (1.9-2.7); Potassium 4.2 mmol/L (3.5-5.0); Total Bilirubin 0.6 mg/dL (0.2-1.0); Total Protein 7.4 g/dL (6.4-8.9)
[2018-10-13] MEDS ORDERED: Magnesium Sulfate 1 GM IV* 1 GM/100 ML BAG IV ONE (09:38)
[2018-10-13 11:25] VITALS: BP 147/86
== END 2018-10-13 11:24 | disposition home or self-care (01) ==
LOC: ED 07:55
DX: R07.9 Chest pain, unspecified (principal); R94.31 Abnormal electrocardiogram [ECG] [EKG]; I10 Essential (primary) hypertension; K43.9 Ventral hernia without obstruction or gangrene; F41.9 Anxiety disorder, unspecified; R06.02 Shortness of breath; Z87.891 Personal history of nicotine dependence; Z79.899 Other long term (current) drug therapy
CPT/HCPCS: 36415; 80053; 83735; 83880; 84484; 85025; 86703; 93005; 96365; 99283; J3475

== ENCOUNTER 2020-03-17 19:06 | Observation (INO) ==
[2020-03-17] MEDS ORDERED: NS 0.9% 1000 ml BAG 1,000 ML IV ONE ×2 (20:09→20:20)
[2020-03-17] MEDS ORDERED: Ondansetron 4 mg VIAL 2 MG/ML 2 ml VIAL IV ONE (20:20)
[2020-03-17 20:32] LABS: ABS Basophils 0.1 10^3/ul (0-0.2); ABS Eosinophils 0.2 10^3/ul (0-0.6); ABS Lymphocytes 1.9 10^3/ul (1.0-4.8); ABS Neutrophils 9.1 10^3/ul (1.5-7.7); Eosinophil % 1.9 %; Hematocrit 46 % (42-52); Hemoglobin 16.1 g/dL (14.0-18.0); Lymphocyte % 15.1 %; Mean Corpuscular HGB Conc 35 g/dL (31-36); Mean Corpuscular Hemoglobin 32 pg (27-31); Mean Corpuscular Volume 91 fL (80-94); Mean Platelet Volume 8.4 fL (7.4-10.4); Platelet Count 391 10^3/uL (150-450); Red Blood Count 5.11 10^6 /uL (4.18-5.48); Red Cell Distribution Width 13 % (10-15); White Blood Count 12.3 10^3/uL (3.5-10.8)
[2020-03-17 20:41] LABS: INR 1.07 (0.82-1.09)
[2020-03-17 20:55] LABS: Albumin 5.2 g/dL (3.2-5.2); Albumin/Globulin Ratio 1.5 (1-3); BUN/Creatinine Ratio 14.4 (8-20); C Reactive Protein 7.25 mg/L (<8.01); Calcium 11.1 mg/dL (8.6-10.3); EGFR African American 99.1 (>60); EGFR Non-African American 81.9 (>60); Globulin 3.5 g/dL (2-4); Potassium 3.5 mmol/L (3.5-5.0); Total Bilirubin 0.6 mg/dL (0.2-1.0); Total Protein 8.7 g/dL (6.4-8.9)
[2020-03-17] MEDS ORDERED: Iohexol 300 (CONTRAST) 10 ML SDV IV ONE (21:28)
[2020-03-17] MEDS ORDERED: Iodixanol (CONTRAST) 320 MG/ML 100 ML SDV IV ONE (21:29)
[2020-03-17 21:59] LABS: Urine Appearance Cloudy; Urine Bilirubin Negative (Negative); Urine Blood Negative (Negative); Urine Color Amber; Urine Glucose Negative (Negative); Urine Ketones Trace (Negative); Urine Nitrite Negative (Negative); Urine Protein Negative (Negative); Urine Urobilinogen Negative (Negative)
[2020-03-17] MEDS ORDERED: Ondansetron 4 mg VIAL 2 MG/ML 2 ml VIAL IV PRN (23:29)
[2020-03-18] MEDS ORDERED: Dextrose 50% Syringe 50 ml 25 GM/50 ML SYRINGE IV PUSH PRN (00:22)
[2020-03-18] MEDS ORDERED: Enoxaparin 40 MG/0.4 ML SYR SUBCUT SCH (02:00)
[2020-03-18] MEDS ORDERED: NS 0.9% 1000 ml BAG 1,000 ML IV SCH (03:45)
[2020-03-18 06:44] LABS: ABS Basophils 0.1 10^3/ul (0-0.2); ABS Eosinophils 0.2 10^3/ul (0-0.6); Eosinophil % 2.7 %; Hematocrit 42 % (42-52); Hemoglobin 14.2 g/dL (14.0-18.0); Lymphocyte % 24.3 %; Mean Corpuscular HGB Conc 34 g/dL (31-36); Mean Corpuscular Hemoglobin 31 pg (27-31); Mean Corpuscular Volume 92 fL (80-94); Platelet Count 322 10^3/uL (150-450); Red Blood Count 4.54 10^6 /uL (4.18-5.48); Red Cell Distribution Width 13 % (10-15); White Blood Count 8.4 10^3/uL (3.5-10.8)
[2020-03-18 07:22] LABS: Albumin 4.3 g/dL (3.2-5.2); Albumin/Globulin Ratio 1.6 (1-3); BUN/Creatinine Ratio 14.9 (8-20); Calcium 8.9 mg/dL (8.6-10.3); EGFR African American 135.5 (>60); Globulin 2.7 g/dL (2-4); Potassium 3.3 mmol/L (3.5-5.0); Total Bilirubin 0.6 mg/dL (0.2-1.0)
[2020-03-18] MEDS ORDERED: Cholecalciferol (VIT D3) 1,000 unit TAB PO SCH (09:00)
[2020-03-18] MEDS ORDERED: Potassium Chlor 20 meq TAB.ER PO ONE (10:37)
[2020-03-18 11:08] LABS: Magnesium 1.7 mg/dL (1.9-2.7)
[2020-03-18 12:04] VITALS: BP 142/72
== END 2020-03-18 13:25 | disposition home or self-care (01) ==
LOC: ED 19:06 → MED 03-18 01:38 → INTOOBSV 03-18 01:38 → MED 03-18 03:36
PROVIDERS: ADMIT Internal Medicine Interventional Cardiology; ATTEND Internal Medicine